=== PATIENT | male | born 1950 | race Caucasian/White ===

== ENCOUNTER → 2021-12-03 14:27 | Outpatient (BNVA) | payer MEDICARE, BC, SELFPAY | PROVIDERS: PCP Family Medicine; Visit Provider Internal Medicine | DX: R70.0 Elevated erythrocyte sedimentation rate (principal); E07.9 Disorder of thyroid, unspecified; L40.9 Psoriasis, unspecified; Z79.899 Other long term (current) drug therapy; M25.9 Joint disorder, unspecified; R76.8 Other specified abnormal immunological findings in serum; Z11.59 Encounter for screening for other viral diseases; Z11.1 Encounter for screening for respiratory tuberculosis; M10.9 Gout, unspecified | CPT/HCPCS: 71046; 72202; 73120; 80053; 82550; 84443; 84550; 85025; 85651; 86140; 86160; 86162; 86200; 86235; 86255; 86376; 86431; 86480; 86704; 86803; 87340; 99204 ==

== ENCOUNTER → 2022-01-23 11:16 | Outpatient (BNVA) | payer MEDICARE, BC, SELFPAY | PROVIDERS: PCP Family Medicine; Visit Provider Internal Medicine | DX: M25.9 Joint disorder, unspecified (principal); R76.8 Other specified abnormal immunological findings in serum; M10.9 Gout, unspecified; R70.0 Elevated erythrocyte sedimentation rate | CPT/HCPCS: 99214 ==

== ENCOUNTER → 2022-05-19 10:53 | Outpatient (BNVA) | payer MEDICARE, BC, SELFPAY | PROVIDERS: PCP Family Medicine; Visit Provider Internal Medicine | DX: R70.0 Elevated erythrocyte sedimentation rate (principal); R76.8 Other specified abnormal immunological findings in serum; M10.9 Gout, unspecified; Z79.899 Other long term (current) drug therapy; M05.9 Rheumatoid arthritis with rheumatoid factor, unspecified | CPT/HCPCS: 36415; 71046; 80053; 82550; 84443; 84550; 85025; 85651; 86140; 99214 ==

== ENCOUNTER → 2022-08-21 13:07 | Outpatient (BNVA) | payer MEDICARE, BC, SELFPAY | PROVIDERS: PCP Family Medicine; Visit Provider Internal Medicine | DX: R70.0 Elevated erythrocyte sedimentation rate (principal); R76.8 Other specified abnormal immunological findings in serum; M10.9 Gout, unspecified; M25.579 Pain in unspecified ankle and joints of unspecified foot; R06.00 Dyspnea, unspecified; M25.9 Joint disorder, unspecified | CPT/HCPCS: 99214 ==

== ENCOUNTER 2022-09-15 12:48 | Outpatient (CLI) | payer MEDICARE, BC, SELFPAY ==
[2022-09-15 13:11] LABS: Basophils # 0.1 10^3/uL (0.0-0.1); Basophils % 0.5 %; Hematocrit 49.4 % (42.0-52.0); Hemoglobin 15.4 g/dL (11.7-16.6); Lymphocytes # 0.8 10^3/uL (0.8-4.8); Mean Corpuscular HGB Conc 31.2 g/dL (30.0-36.0); Mean Corpuscular Hemoglobin 29.2 pg (28.0-34.0); Mean Corpuscular Volume 93.7 fl (80-94); Mean Platelet Volume 10.4 fL (7.4-10.4); Monocytes # 0.5 10^3/uL (0.2-0.9); Monocytes % 4.7 %; Neutrophils # 9.56 10^3/uL (1.8-7.7); Neutrophils % 87.2 %; Nucleated Red Blood Cells % 0 %; Platelet Count 272 10^3/cmm (130-400); Red Blood Count 5.27 10^6/uL (4.1-5.3); Red Cell Distribution Width 13.8 % (12.1-15.1)
[2022-09-15 13:16] LABS: Erythrocyte Sedimentation Rate 65 mm/hr (0-10)
--- NOTE | 2022-09-15 13:30 | CT_ITS ---
WS: [id number] CT RIGHT FOOT, NONCONTRAST. HISTORY: M10.9 - Gout, unspecified Technique: All CT scans at [facility] use at least one of these dose optimization techniques: automated exposure control; mA and/or kV adjustment per patient size (includes targeted exams where dose is matched to clinical indication); or iterative reconstruction. DLP: 142.34 mGy-cm. COMPARISON: None available. Mild hallux valgus deformity. Mild increased soft tissue surrounding the first metatarsal head but no dense tophus identified. No overhanging margins or erosions at the first metatarsal head. No metatar mary jane head erosions. There are a few small erosive or cystic changes in the midfoot. Including the prox imal second metatarsal and the middle and lateral cuneiforms. Subchondral cyst in the talus. Negative calcaneus. Mild soft tissue edema surrounding the ankle and f oot. IMPRESSION: 1. No overhanging erosion or dense tophus at the first metatarsophalangeal joint. 2. There are a few very small cystic or erosive changes in the tarsal bones as described above. Nons pecific and may be related to aging. 3. Mild hallux valgus.
[2022-09-15 13:37] LABS: Alanine Aminotransferase 18 U/L (0-41); Albumin Level 4.2 g/dL (3.5-5.2); Alkaline Phosphatase 77 U/L (40-130); Anion Gap 13.1 (5-19); Aspartate Amino Transferase 17 U/L (0-40); Blood Urea Nitrogen 22 mg/dL (8-23); C Reactive Protein 4.3 mg/L (0.0-4.9); Calcium 9.3 mg/dL (8.5-10.5); Carbon Dioxide 27 mmol/L (22-29); Chloride 101 mmol/L (98-107); Globulin 2.3 g/dL (1.3-4.6); Glucose 110 mg/dL (65-115); Osmolality Calculated 286 mOsm/kg (285-295); Potassium 5.1 mmol/L (3.5-5.1); Sodium 136 mmol/L (136-145); Total Bilirubin 0.3 mg/dL (0.15-1.2); Total Protein 6.5 g/dL (6.6-8.7); Uric Acid 3.6 mg/dL (3.4-7.0)
--- NOTE | 2022-09-15 15:30 | CT_ITS ---
WS: [id number] CT chest wo con [id number] HISTORY: R06.00 - Dyspnea, unspecified TECHNIQUE: Axial imaging performed through the thorax. Coronal and sagittal reformats are submitted. All CT scans at [facility] use at least one of these dose optimization techniques: automated exposure control; mA and/or kV adjustment per patient size (includes targeted exams where dose is mat ched to clinical indication); or iterative reconstruction. CONTRAST: Omnipaque 350; 100 mL IV. DLP: 550.82 mGy.cm COMPARISON: None available. Lungs and central airway: 3 mm noncalcified nodule RIGHT apex. Very mild early changes of tree-in-bud airspace disease periphery RIGHT lower lobe and LEFT upper lobe. Mild pleural thickening LEFT lung b ase. There is additional benign-appearing pleural fat in the LEFT lower lung field. Pleura: Normal. No pleural effusion. Heart and pericardium: Normal size heart. Moderate coronary artery calcifications. Mediastinum and eva: No mediastinum or hilar adenopathy. Vessels: Normal size aortic and pulmonary artery. No coronary artery calcifications. Chest wall and lower neck: No soft tissue masses. Upper abdomen: Normal. Osseous structures: Mild spondylitic changes in the midthoracic spine. CT/CT chest wo con [id number] IMPRESSION: 1. No mass or dense consolidation of pneumonia. 2. Mild tree-in-bud airspace disease RIGHT lower and LEFT upper lobes. Mild en dobronchial pneumonia is likely. 3. Moderate coronary artery calcifications.
== END 2022-09-15 12:49 | disposition home or self-care (01) ==
PROVIDERS: PCP Family Medicine; Visit Provider Internal Medicine
DX: M10.9 Gout, unspecified (principal); R76.8 Other specified abnormal immunological findings in serum; M25.579 Pain in unspecified ankle and joints of unspecified foot; R06.00 Dyspnea, unspecified; R70.0 Elevated erythrocyte sedimentation rate; J98.4 Other disorders of lung; I25.10 Atherosclerotic heart disease of native coronary artery without angina pectoris; M20.11 Hallux valgus (acquired), right foot
CPT/HCPCS: 36415; 71250; 73700; 76377; 80053; 84550; 85025; 85651; 86140

== ENCOUNTER → 2022-11-04 15:16 | Outpatient (BNVA) | payer MEDICARE, BC, SELFPAY | PROVIDERS: PCP Family Medicine; Visit Provider Internal Medicine | DX: M25.9 Joint disorder, unspecified (principal); R76.8 Other specified abnormal immunological findings in serum; R70.0 Elevated erythrocyte sedimentation rate; M10.9 Gout, unspecified; R06.00 Dyspnea, unspecified | CPT/HCPCS: 99214 ==

== ENCOUNTER → 2023-02-05 14:21 | Outpatient (BNVA) | payer MEDICARE, BC, SELFPAY | PROVIDERS: PCP Family Medicine; Visit Provider Internal Medicine | DX: R76.8 Other specified abnormal immunological findings in serum (principal); M10.9 Gout, unspecified; M25.9 Joint disorder, unspecified; R70.0 Elevated erythrocyte sedimentation rate; R06.00 Dyspnea, unspecified | CPT/HCPCS: 36415; 80053; 84550; 85025; 85651; 86140; 99214 ==

== ENCOUNTER → 2023-09-08 08:58 | Outpatient (BNVA) | payer MEDICARE, BC, SELFPAY | PROVIDERS: PCP Family Medicine; Visit Provider Internal Medicine Rheumatology | DX: M1A.09X0 Idiopathic chronic gout, multiple sites, without tophus (tophi) (principal); M05.79 Rheumatoid arthritis with rheumatoid factor of multiple sites without organ or systems involvement; M10.9 Gout, unspecified; M19.90 Unspecified osteoarthritis, unspecified site; Z79.899 Other long term (current) drug therapy; Z71.85 Encounter for immunization safety counseling; Z11.1 Encounter for screening for respiratory tuberculosis; Z11.59 Encounter for screening for other viral diseases | CPT/HCPCS: 36415; 80076; 82565; 84550; 85025; 85651; 86140; 86480; 99215 ==

== ENCOUNTER → 2024-01-19 09:12 | Outpatient (BNVA) | payer MEDICARE, BC, SELFPAY | PROVIDERS: PCP Family Medicine; Visit Provider Internal Medicine Rheumatology | DX: M05.79 Rheumatoid arthritis with rheumatoid factor of multiple sites without organ or systems involvement (principal); Z79.899 Other long term (current) drug therapy; M1A.09X0 Idiopathic chronic gout, multiple sites, without tophus (tophi); Z71.85 Encounter for immunization safety counseling | CPT/HCPCS: 36415; 80076; 82565; 85025; 85651; 86140; 99214 ==

== ENCOUNTER → 2024-05-17 10:47 | Outpatient (BNVA) | payer MEDICARE, BC, SELFPAY | PROVIDERS: PCP Family Medicine; Visit Provider Internal Medicine Rheumatology | DX: M1A.09X0 Idiopathic chronic gout, multiple sites, without tophus (tophi) (principal); M05.79 Rheumatoid arthritis with rheumatoid factor of multiple sites without organ or systems involvement; Z79.899 Other long term (current) drug therapy; Z71.85 Encounter for immunization safety counseling | CPT/HCPCS: 99214 ==

== ENCOUNTER → 2024-11-01 13:07 | Outpatient (BNVA) | payer MEDICARE, BC, SELFPAY | PROVIDERS: PCP Family Medicine; Visit Provider Internal Medicine Rheumatology | DX: M05.79 Rheumatoid arthritis with rheumatoid factor of multiple sites without organ or systems involvement (principal); M1A.09X0 Idiopathic chronic gout, multiple sites, without tophus (tophi); Z79.899 Other long term (current) drug therapy; Z71.85 Encounter for immunization safety counseling | CPT/HCPCS: 36415; 80076; 82306; 82565; 85025; 85651; 86140; 99214 ==